=== PATIENT | male | born 1985 | race African-American/Black ===

== ENCOUNTER 2023-10-07 15:42 | Emergency (ER) | payer BC, MEDICAID, OTHER ==
[~2023-10-07] VITALS: Ht 188 cm; Wt 113.6 kg
[~2023-10-07 15:42] MED LIST: HYDR25TA2 PO; LISI-893 PO
[2023-10-07 15:44] VITALS: TEMP 98.2
[2023-10-07] MEDS: KETOROLAC TROMETHAMINE 30 MG/ML VIAL IM ONE (16:18)
[2023-10-07] MEDS ORDERED: GABA-1216 PO (17:48)
[2023-10-07 17:54] VITALS: BP 136/79; PULSE 84; RESP 16
== END 2023-10-07 17:55 | disposition home or self-care (01) ==
LOC: EMS 15:42
DX: G56.21 Lesion of ulnar nerve, right upper limb (principal); I10 Essential (primary) hypertension; G43.909 Migraine, unspecified, not intractable, without status migrainosus; Z98.890 Other specified postprocedural states
CPT/HCPCS: 99284; 73080; 73110; 96372; J1885